=== PATIENT | male | born 1935 | race Caucasian/White ===

== ENCOUNTER 2017-09-22 04:53 | Outpatient (CLI) | payer SELFPAY | END 2017-09-22 23:59 | disposition home or self-care (01) | LOC: HW VAS 04:53 | DX: Z00.00 Encounter for general adult medical examination without abnormal findings (principal) ==

== ENCOUNTER 2020-05-25 08:10 | Emergency (ER) | payer MEDICARE, OTHER ==
[~2020-05-25] VITALS: Ht 406.4 cm; Wt 70.5 kg
--- NOTE | 2020-05-25 09:50 | NUR ---
8 OZ SODA AND SUGAR ENEMA GIVEN TO PATIENT AND RETAINED. UP TO BSC AND EXPELLED BROWN LIQUID WITHOUT EVIDENCE OF STOOL. PATIENT BEARING DOWN TO TRY TO PASS STOOL AND BECAME LETHARGIC, SLUMPING TO THE SIDE OF BSC. AROUSABLE TO NAME CALL, BUT WEAK. INCONTINENT OF URINE. BP 74/42, HR 81. ASSISTED BACK ONTO [facility]. DR CHOWDHURY NOTIFIED OF EVENT.
--- NOTE | 2020-05-25 10:10 | NUR ---
RESTING ON GURNEY. AROUSABLE TO NAME. A/O X 4. PATIENT STATES HE STILL FEELS CONSTIPATED.
[2020-05-25] MEDS: pramoxine 1% foam spray 15gm TP PRN ×2 (12:01→12:48)
[2020-05-25 12:04] VITALS: BP 116/99
[2020-05-25] MEDS ORDERED: magnesium citrate 296ml oral solution PO ONE (12:35)
[2020-05-25] MEDS ORDERED: BISA10SU60 RC (12:49)
== END 2020-05-25 13:18 | disposition home or self-care (01) ==
LOC: ER 08:11
DX: K59.00 Constipation, unspecified (principal); Z85.9 Personal history of malignant neoplasm, unspecified
CPT/HCPCS: 74022; 99285

== ENCOUNTER 2021-05-31 11:57 | Emergency (ER) | payer MEDICARE ==
[~2021-05-31] VITALS: Ht 177.8 cm; Wt 73.0 kg
[~2021-05-31 11:57] MED LIST: DEC4T PO; LEVO50TA8 PO; LOSA100T57 PO; MOME45CR3 TP; OMEP40CA21 PO
[2021-05-31 12:48] LABS: BASOPHILS % (AUTO) 0 % (0-1); EOSINOPHILS % (AUTO) 0.2 % (0-6); HEMATOCRIT 42.1 % (42.0-52.0); HEMOGLOBIN 14.4 g/dl (14.0-17.9); LYMPHOCYTES # (AUTO) 0.7 X10'3 (1.1-4.8); LYMPHOCYTES % (AUTO) 6.3 % (21-51); MEAN CORPUSCULAR HEMOGLOBIN 29.1 PG (27.0-31.0); MEAN CORPUSCULAR HGB CONC 34.3 g/dL (33.0-36.5); MEAN CORPUSCULAR VOLUME 84.8 FL (78-98); MEAN PLATELET VOLUME 7.2 FL (7.4-10.4); MONOCYTES # (AUTO) 1.1 X10'3 (0-0.9); MONOCYTES % (AUTO) 9.7 % (2-12); NEUTROPHILS # (AUTO) 9.4 X10'3 (1.8-7.7); NEUTROPHILS % (AUTO) 83.8 % (42-75); PLATELET COUNT 238 X10'3 (140-440); RED BLOOD COUNT 4.96 X10'6 (4.70-6.10); RED CELL DISTRIBUTION WIDTH 14.8 % (11.5-14.5); WHITE BLOOD COUNT 11.2 X10'3 (4.5-11.0)
[2021-05-31 13:00] LABS: ALANINE AMINOTRANSFERASE 30 U/L (12-78); ALBUMIN 3.1 G/DL (3.4-5.0); ALBUMIN/GLOBULIN RATIO 1.1 (1.1-1.5); ALKALINE PHOSPHATASE 75 IU/L (46-116); ANION GAP 6 (8-16); ASPARTATE AMINO TRANSFERASE 14 U/L (10-37); BILIRUBIN,TOTAL 0.9 MG/DL (0.1-1.0); BLOOD UREA NITROGEN 33 MG/DL (7-18); BUN/CREATININE RATIO 23.7 (5.4-32.0); CALCIUM 8.7 MG/DL (8.5-10.1); CHLORIDE 98 MMOL/L (99-107); CREATININE 1.39 MG/DL (0.60-1.10); GLUCOSE 142 MG/DL (70-104); POTASSIUM 4.2 MMOL/L (3.5-5.1); SODIUM 133 MMOL/L (135-145); TOTAL PROTEIN 5.8 G/DL (6.4-8.2); eGFR 49 ML/MIN
--- NOTE | 2021-05-31 14:24 | NUR ---
CARLEE PAL [phone]
[2021-05-31 14:42] LABS: CLARITY,URINE CLOUDY (Clear); COLOR,URINE YELLOW (Yellow); GLUCOSE, URINE NEGATIVE (Neg); KETONES,URINE NEGATIVE (Neg); LEUKOCYTE ESTERASE ,URINE NEGATIVE (Neg); NITRITES, URINE NEGATIVE (Neg); OCCULT BLOOD,URINE LARGE (Neg); PH,URINE 6.5 (4.8-8.0); PROTEIN,URINE TRACE mg/dl (Neg)
[2021-05-31 14:46] LABS: UA COLLECTION TYPE FOLEY CATH
[2021-05-31 14:50] LABS: BACTERIA,URINE FEW /HPF (Neg); HYALINE CASTS 0-3 /LPF (NEGATIVE); MUCUS STRANDS NONE SEEN /LPF (Neg); RBC,URINE 20-50 /HPF (0-2); SQUAMOUS EPITHELIAL CELL,UR FEW /LPF (FEW); WBC,URINE 0-4 /HPF (0-4)
[2021-05-31] MEDS ORDERED: magnesium citrate 296ml oral solution PO ONE (15:25)
[2021-05-31] MEDS ORDERED: normal saline 1000ML IV soln IVB ONE ×2 (15:25→18:00)
[2021-05-31 19:32] VITALS: BP 133/59
--- NOTE | 2021-05-31 20:37 | NUR ---
700ML OUT FROM [facility] C[facility].
== END 2021-05-31 21:18 | disposition home or self-care (01) ==
LOC: ER 11:58
DX: R55 Syncope and collapse (principal); K59.00 Constipation, unspecified; R00.1 Bradycardia, unspecified; R10.84 Generalized abdominal pain; K21.9 Gastro-esophageal reflux disease without esophagitis; Z85.841 Personal history of malignant neoplasm of brain; Z98.890 Other specified postprocedural states; Z79.899 Other long term (current) drug therapy
CPT/HCPCS: 36415; 70450; 71045; 74176; 80053; 81001; 83880; 84145; 84484; 85025; 93005; 99285; J7030

== ENCOUNTER 2021-10-30 13:54 | Emergency (ER) | payer MEDICARE ==
[~2021-10-30] VITALS: Ht 175.3 cm; Wt 70.5 kg
[~2021-10-30 13:54] MED LIST changes: -DEC4T PO; -MOME45CR3 TP
[2021-10-30 14:54] LABS: BASOPHILS % (AUTO) 0.6 % (0-1); EOSINOPHILS # (AUTO) 0.1 X10'3 (0-0.9); EOSINOPHILS % (AUTO) 2.8 % (0-6); HEMATOCRIT 24.2 % (42.0-52.0); HEMOGLOBIN 8.3 g/dl (14.0-17.9); LYMPHOCYTES # (AUTO) 0.4 X10'3 (1.1-4.8); LYMPHOCYTES % (AUTO) 10.2 % (21-51); MEAN CORPUSCULAR HEMOGLOBIN 28.9 PG (27.0-31.0); MEAN CORPUSCULAR HGB CONC 34.3 g/dL (33.0-36.5); MEAN CORPUSCULAR VOLUME 84.2 FL (78-98); MEAN PLATELET VOLUME 6.7 FL (7.4-10.4); MONOCYTES # (AUTO) 0.3 X10'3 (0-0.9); MONOCYTES % (AUTO) 8.6 % (2-12); NEUTROPHILS # (AUTO) 2.9 X10'3 (1.8-7.7); NEUTROPHILS % (AUTO) 77.8 % (42-75); PLATELET COUNT 132 X10'3 (140-440); RED BLOOD COUNT 2.88 X10'6 (4.70-6.10); WHITE BLOOD COUNT 3.8 X10'3 (4.5-11.0)
[2021-10-30 15:08] LABS: ALANINE AMINOTRANSFERASE 15 U/L (12-78); ALBUMIN 2.7 G/DL (3.4-5.0); ALKALINE PHOSPHATASE 69 IU/L (46-116); ANION GAP 9 (8-16); ASPARTATE AMINO TRANSFERASE 6 U/L (10-37); BILIRUBIN,TOTAL 0.4 MG/DL (0.1-1.0); BLOOD UREA NITROGEN 28 MG/DL (7-18); BUN/CREATININE RATIO 20.1 (5.4-32.0); CALCIUM 8.1 MG/DL (8.5-10.1); CHLORIDE 105 MMOL/L (99-107); CREATININE 1.39 MG/DL (0.60-1.10); GLUCOSE 135 MG/DL (70-104); POTASSIUM 3.8 MMOL/L (3.5-5.1); SODIUM 139 MMOL/L (135-145); TOTAL CARBON DIOXIDE 25.3 MMOL/L (24-32); TOTAL PROTEIN 5.4 G/DL (6.4-8.2); eGFR 49 ML/MIN
[2021-10-30] MEDS ORDERED: FLO0.4C PO (16:58)
[2021-10-30] MEDS ORDERED: DEXA1TAB PO (16:58)
[2021-10-30] MEDS ORDERED: MULT-1085 PO (16:58)
[2021-10-30] MEDS ORDERED: dexamethasone sod phosphate 10mg/ml inj IV STA (18:13)
[2021-10-30 19:24] VITALS: BP 130/69
== END 2021-10-30 19:26 | disposition home or self-care (01) ==
LOC: ER 13:54
DX: R55 Syncope and collapse (principal); M54.2 Cervicalgia; I10 Essential (primary) hypertension; K21.9 Gastro-esophageal reflux disease without esophagitis; Z85.841 Personal history of malignant neoplasm of brain; Z98.890 Other specified postprocedural states; Z79.899 Other long term (current) drug therapy
CPT/HCPCS: 36415; 70450; 71045; 80053; 82948; 83880; 84484; 85025; 96374; 99285; J1100; 93005; 99291; 99292

== ENCOUNTER 2022-04-07 16:43 | Emergency (ER) | payer MEDICARE ==
[~2022-04-07] VITALS: Ht 172.7 cm; Wt 72.7 kg
[~2022-04-07 16:43] MED LIST changes: +DEXA1TAB PO; +FLO0.4C PO; +MULT-1085 PO
--- NOTE | 2022-04-07 17:40 | NUR ---
now here with pt at bedside. reports that sometime after lunch pt was found on ground on all fours. "thinks" pt slid out of chair but did not witness event. had called fire and they assisted pt up and left. reports later she noticed abrasion like area on pts head and concerned as pt with increased head pain and unsure if increased pain related to fall so she called advise nurse and encouraged to have pt brought in.
--- NOTE | 2022-04-07 17:45 | NUR ---
Spoke with Dr. Sigala and updated on pts report, received VO pt to have CT of head.
[2022-04-07 19:27] LABS: BASOPHILS % (AUTO) 0 % (0-1); EOSINOPHILS % (AUTO) 0.1 % (0-6); LYMPHOCYTES # (AUTO) 0.3 X10'3 (1.1-4.8); LYMPHOCYTES % (AUTO) 4.1 % (21-51); MEAN CORPUSCULAR HEMOGLOBIN 33.8 PG (27.0-31.0); MEAN PLATELET VOLUME 6.4 FL (7.4-10.4); MONOCYTES # (AUTO) 0.2 X10'3 (0-0.9); MONOCYTES % (AUTO) 3.1 % (2-12); NEUTROPHILS % (AUTO) 92.7 % (42-75); PLATELET COUNT 102 X10'3 (140-440); WHITE BLOOD COUNT 6.4 X10'3 (4.5-11.0)
[2022-04-07 19:40] LABS: ALANINE AMINOTRANSFERASE 49 U/L (12-78); ALBUMIN 2.6 G/DL (3.4-5.0); ALKALINE PHOSPHATASE 65 IU/L (46-116); ANION GAP 6 (8-16); ASPARTATE AMINO TRANSFERASE 18 U/L (10-37); BILIRUBIN,TOTAL 0.5 MG/DL (0.1-1.0); BLOOD UREA NITROGEN 35 MG/DL (7-18); CALCIUM 8.9 MG/DL (8.5-10.1); CHLORIDE 99 MMOL/L (99-107); CREATININE 1.52 MG/DL (0.60-1.10); GLUCOSE 209 MG/DL (70-104); POTASSIUM 4.6 MMOL/L (3.5-5.1); SODIUM 133 MMOL/L (135-145); TOTAL PROTEIN 5.2 G/DL (6.4-8.2); eGFR 44 ML/MIN
[2022-04-07 19:43] LABS: MAGNESIUM 1.8 MG/DL (1.5-2.4)
[2022-04-07 19:58] LABS: CLARITY,URINE SLIGHTLY CLOUDY (Clear); COLOR,URINE YELLOW (Yellow); GLUCOSE, URINE 100 mg/dl (Neg); KETONES,URINE NEGATIVE (Neg); LEUKOCYTE ESTERASE ,URINE NEGATIVE (Neg); NITRITES, URINE NEGATIVE (Neg); OCCULT BLOOD,URINE NEGATIVE (Neg); PROTEIN,URINE NEGATIVE (Neg); UROBILINOGEN,URINE 0.2 E.U/dL (0.2-1.0)
[2022-04-07 20:05] LABS: UA COLLECTION TYPE CLN CATCH MIDSTREAM
[2022-04-07 20:13] LABS: HEMATOCRIT 24.5 % (42.0-52.0); HEMOGLOBIN 9.1 g/dl (14.0-17.9); MEAN CORPUSCULAR HGB CONC 36.9 g/dL (33.0-36.5); MEAN CORPUSCULAR VOLUME 91.6 FL (78-98); RED BLOOD COUNT 2.68 X10'6 (4.70-6.10)
[2022-04-07 20:15] LABS: RED CELL DISTRIBUTION WIDTH 16.1 % (11.5-14.5)
[2022-04-07 20:18] LABS: SQUAMOUS EPITHELIAL CELL,UR NONE SEEN /LPF (FEW)
[2022-04-07 20:20] LABS: AMORPHOUS PHOSPHATES 3+
[2022-04-07 20:21] LABS: BACTERIA,URINE FEW /HPF (Neg); WBC,URINE 0-4 /HPF (0-4)
[2022-04-07 20:22] LABS: TRANSITIONAL EPI CELLS,URINE FEW /HPF
[2022-04-07 20:23] LABS: HYALINE CASTS 0-3 /LPF (NEGATIVE)
[2022-04-07 20:48] LABS: ANISOCYTOSIS 1+; PLATELET ESTIMATE DECREASED; TOTAL CELLS COUNTED 100
[2022-04-07 20:49] LABS: ELLIPTOCYTES FEW; TEAR DROP CELLS FEW
[2022-04-07 20:50] LABS: POLYCHROMASIA FEW; SPHEROCYTES FEW
[2022-04-07 22:56] VITALS: BP 132/85
== END 2022-04-07 23:24 | disposition home or self-care (01) ==
LOC: ER 16:43
DX: Z00.00 Encounter for general adult medical examination without abnormal findings (principal); R51.9 Headache, unspecified; S09.90XA Unspecified injury of head, initial encounter; K21.9 Gastro-esophageal reflux disease without esophagitis; I12.0 Hypertensive chronic kidney disease with stage 5 chronic kidney disease or end stage renal disease; N18.9 Chronic kidney disease, unspecified
CPT/HCPCS: 36415; 70450; 80053; 81001; 83735; 84484; 85007; 85025; 93005; 99285